=== PATIENT | female | born 1995 | race Hispanic/Latino ===

== ENCOUNTER 2018-05-05 13:17 | Emergency (ER) | payer OTHER ==
[2018-05-05] MEDS ORDERED: Ibuprofen 800 MG TAB ONE (14:03)
[2018-05-05] MEDS ORDERED: Dexamethasone 4 MG TAB ONE (14:03)
[2018-05-05] MEDS ORDERED: Ibuprofen 200 MG TAB ONE (14:05)
== END 2018-05-05 14:48 | disposition home or self-care (01) ==
LOC: ERS 13:17
DX: J02.9 Acute pharyngitis, unspecified (principal); B34.9 Viral infection, unspecified
CPT/HCPCS: 87081; 87430; 99283; J8540